=== PATIENT | female | born 2000 | race Two or more races ===

== ENCOUNTER 2020-08-06 19:43 | Emergency (ER) | payer BC ==
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
[2020-08-06] MEDS ORDERED: Lidocaine 1% 10 ML MDV INJECT ONE (20:20)
[2020-08-06 21:03] VITALS: BP 112/78; PULSE 89
== END 2020-08-06 21:10 | disposition home or self-care (01) ==
LOC: JD.ED 19:43
DX: S01.511A Laceration without foreign body of lip, initial encounter (principal); H61.20 Impacted cerumen, unspecified ear; Y04.0XXA Assault by unarmed brawl or fight, initial encounter; Z91.040 Latex allergy status
CPT/HCPCS: 12011; 99283; J2001; 12001

== ENCOUNTER 2021-08-27 13:48 | Inpatient (IN) | payer BC ==
[2021-08-27] MEDS ORDERED: Ondansetron 4 MG/2 ML SDV IVPUSH PRN (14:41)
[2021-08-27] MEDS ORDERED: Sodium Chloride 0.9% 10 ML Syringe FLUSH PRN (14:41)
[2021-08-27] MEDS ORDERED: Nalbuphine 10 MG/1 ML Vial IVPUSH PRN (14:41)
[2021-08-27] MEDS ORDERED: Oxytocin/Lactated Ringers 10 UNIT/1,000 ML BAG IV SCH ×2 (14:45)
[2021-08-27] MEDS: Lactated Ringers 1,000 ML IV SCH ×4 (15:22→23:17)
--- NOTE | 2021-08-27 15:57 | PCM.LDHP ---
L&D History of Present Illness - General Date of Service: 08/27/21 Admit Problem/Dx: Patient Status Order with Admit Dx/Problem 08/27/21 13:57 Patient Status [ADT] Routine 08/27/21 15:00 Patient Status [ADT] Routine Admission Diagnosis/Problem Admission Diagnosis/Problem Source of Information: Patient History Limitations: Reports: No Limitations - History of Present Illness Introduction:: Delicia Yo is a 20-year-old -0-1-0 female at 40 weeks 0 days (ANA M 08/27/2021) by LMP of 11/20/2020 consistent with an 11-week ultrasound who presents with spontaneous rupture membranes. She reports that around noon today she had a large gush of fluid that was clear to slightly green-tinged per her report. She states there there was some pink-tinged coloring to it initially but this is not continued. She denies any odor to the fluid. She has had continuous leaking of fluid since initial gush. While she has been on the labor and delivery unit she is soaked through several chucks pads. She denies any significant vaginal bleeding. She reports that she was having irregular contractions prior to her water breaking and started to have more frequent contractions after her water had broken. She states that the contractions were anywhere from about 5 to 10 minutes apart after her water broke. She reports good movement Timing/Duration: Reports: sudden onset (With large gush of fluid at around noon), intermittent (Contractions every 5 to 10-minute) Location, : Reports: Pelvic Quality: Reports: Pressure Severity: Moderate Associated Symptoms: Reports: vaginal fluid, large amount. Denies: vaginal bleeding, vaginal discharge Present Illness Comments:: Delicia Yo is a 20-year-old -0-1-0 female at 40 weeks 0 days (ANA M 08/27/2021) by LMP consistent with 11-week ultrasound who presents with spontaneous rupture membranes. She has had routine care with Dr. Avila starting at 10 weeks gestational age. Her has been overall uncomplicated but she has had increasing amounts of need for use of her albuterol inhaler due to asthma. She states that at this time she is using it intermittently about 1-2 times per week. Some weeks are worse than others. She received Tdap vaccine on 06/14/2021. 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 G1: TAB in 2017 with D&C G2: Current labs Blood type: A+ Antibody screen: Negative First trimester hematocrit/hemoglobin: 38.0%/13.1 on 02/03/2021 Platelets: 216 on 02/03/2021 Urine culture: Negative Rubella status: Immune Hepatitis B surface antigen: Negative RPR: Negative Hepatitis C: Negative HIV: Negative Gonorrhea: Negative Chlamydia: Negative One hour glucose tolerance test: 102 Second trimester hematocrit/hemoglobin: 34.6%/11.7 on 06/14/2021 Platelets: 178 on 06/14/2021 GBS status: Negative - Related Data Allergies/Adverse Reactions: Allergies Allergy/AdvReac Type Severity Reaction Status Date / Time adhesive Allergy Rash Verified 08/27/21 15:50 latex Allergy Rash Verified 08/06/20 20:05 Home Medications: Home Meds Vits #93/Iron Fum/FA [ Formula Tablet] 1 tab PO DAILY 08/27/21 [History] Past Medical History - Past Health History Medical/Surgical History: Denies Medical/Surgical History Respiratory History: Reports: Asthma FUND DEVELOPMENT MANAGER History: Reports: : 2 Para: 0 Psychiatric History: Reports: Addiction, Anxiety - Past Surgical History Musculoskeletal Surgical History: Reports: Arthroscopic Knee, Other (See Below) Other Musculoskeletal Surgeries/Procedures:: rt knee surgery Social & Family History - Family History Family Medical History: No Pertinent Family History - Tobacco Use Tobacco Use Status *Q: Former Tobacco User Used Tobacco, but Quit: Yes Month/Year Tobacco Last Used: 01/2021 Second Hand Smoke Exposure: No - Tobacco Core Measures Tobacco Use/Smoking Within Last 30 Days: No Smokeless Tobacco Use in Last 30 Days: No - Caffeine Use Caffeine Use: Reports: None - Recreational Drug Use Recreational Drug Use: No - Sexual History Sexual History: Reports: Multiple Partners - Living Situation & Occupation Living situation: Reports: H&P Review of Systems - Review of Systems: Review Of Systems: See Below General: Denies: Fever, Chills, Malaise, Fatigue HEENT: Denies: Headaches, Rhinitis, Post Nasal Drip, Sinus Congestion, Sore Throat, Visual Changes Pulmonary: Denies: Shortness of Breath, Wheezing, Pleuritic Chest Pain, Cough Cardiovascular: Denies: Chest Pain, Palpitations, Dyspnea on Exertion, Orthopnea Gastrointestinal: Reports: Diarrhea (For the last several days). Denies: Abdominal Pain, Constipation, Nausea, Vomiting Genitourinary: Denies: Dysuria, Frequency, Burning, Pain, Urgency Musculoskeletal: Reports: Back Pain (And hip pain ) Skin: Denies: Rash, Lesions Psychiatric: Denies: Depression, Anxiety L&D Exam - Exam Exam: See Below - Vital Signs Vital Signs: Last Vital Signs Temp 36.7 C 08/27/21 13:57 Pulse 90 08/27/21 13:57 Resp 16 08/27/21 13:57 BP 112/71 08/27/21 13:57 Pulse Ox 99 08/27/21 13:57 Weight: 76.204 kg - OB Specific Contraction Duration (sec): 45-60 Contraction Frequency (min): 3-5 Contraction Intensity: Moderate to Strong Movement: Active Heart Tones: Present Heart Tones per Min: 155 (+15 x 15 accelerations, intermittent early decelerations) Heart Rate (FHR) Variability: Moderate (6-25 bpm) Presentation: Vertex (By ultrasound) Estimated Weight: 7-7.5 lbs by Eduardo - Conn Score Conn Score Cervix Position: Anterior Conn Score Consistency: Soft Conn Score Effacement: >80% (80) Conn Score Dilation: 3-4 cm (4 cm) Conn Score 's Station: -2 Conn Score Total: 10 - Exam General: Alert, Oriented HEENT: Conjunctiva Clear, EOMI Neck: Supple, Trachea Midline Lungs: Clear to Auscultation, Normal Respiratory Effort Cardiovascular: Regular Rate, Regular Rhythm GI/Abdominal Exam: Soft, Non-Tender, No Distention, Other (Gravid). No: Guarding, Rigid, Rebound Genitourinary: Normal external exam Extremities: Normal Inspection, Non-Tender, Pedal Edema (1+) Skin: Warm, Dry, Intact Psychiatric: Alert, Normal Affect, Normal Mood - Patient Data Result Diagrams: 08/27/21 15:10 - Problem List (1) 40 weeks gestation of SNOMED Code(s): 15218689 ICD Code: Z3A.40 - 40 WEEKS GESTATION OF Status: Acute Current Visit: Yes (2) Asthma affecting , antepartum SNOMED Code(s): 76000561992697, 86610838282461 ICD Code: O99.519 - DISEASES OF THE RESP SYS COMP , UNSP TRIMESTER; J45.909 - UNSPECIFIED ASTHMA, UNCOMPLICATED Status: Acute Current Visit: Yes Problem List Initiated/Reviewed/Updated: Yes Orders Last 24hrs: Active Orders 24 hr Category Date Time Status Patient Status [ADT] Routine ADT 08/27/21 15:00 Active Activity as Tolerated [RC] PFP Care 08/27/21 14:41 Active Communication Order [RC] ASDIRECTED Care 08/27/21 14:41 Active Heart Tones [RC] ASDIRECTED Care 08/27/21 14:43 Active Non Stress Test [RC] PER UNIT ROUTINE Care 08/27/21 13:57 Active Notify Provider [RC] PFP Care 08/27/21 14:41 Active Notify Provider [RC] PRN Care 08/27/21 14:41 Active Peripheral IV Care [RC] . DIRECTED Care 08/27/21 14:43 Active Pump Management, Intrathecal [RC] ASDIRECTED Care 08/27/21 14:43 Active Urinary Catheter Assessment [RC] ASDIRECTED Care 08/27/21 14:41 Active Vital Signs [RC] PER UNIT ROUTINE Care 08/27/21 13:57 Active CBC WITH AUTO DIFF [HEME] Stat Lab 08/27/21 15:10 Received CORONAVIRUS COVID-19 LORETA [MOLEC] Stat Lab 08/27/21 14:10 Received RAPID PLASMA REAGIN,RPR [CHEM] Routine Lab 08/27/21 15:10 Received Lactated Ringers [Ringers, Lactated] 1,000 ml Med 08/27/21 14:45 Active IV ASDIRECTED Nalbuphine [Nubain] Med 08/27/21 14:41 Active 10 mg IVPUSH Q2H PRN Ondansetron [Zofran] Med 08/27/21 14:41 Active 4 mg IVPUSH Q4H PRN Oxytocin/Lactated Ringers [Pitocin in LR 10 Units/1,000 Med 08/27/21 14:45 Active ML] 10 unit in 1,000 ml IV .CONTINUOUS Oxytocin/Lactated Ringers [Pitocin in LR 10 Units/1,000 Med 08/27/21 14:45 Active ML] 10 unit in 1,000 ml IV TITRATE Sodium Chloride 0.9% [Saline Flush] Med 08/27/21 14:41 Active 10 ml FLUSH ASDIRECTED PRN Electronic Heart Tones Ext w TOCO [WOMSER] Oth 08/27/21 14:41 Ordered Routine Electronic Heart Tones Internal [WOMSER] Per Unit Oth 08/27/21 14:41 Ordered Routine Peripheral IV Insertion Adult [OM.PC] Routine Oth 08/27/21 14:41 Ordered Resuscitation Status Routine Resus Stat 08/27/21 13:56 Ordered Medication Orders Lactated Ringer's (Ringers, Lactated) 1,000 mls @ 100 mls/hr IV ASDIRECTED KISHAN Last Admin: 08/27/21 15:22 Dose: 100 mls/hr Documented by: RODDY Oxytocin/Lactated Ringer's (Pitocin In Lr 10 Units/1,000 Ml) 10 unit in 1,000 mls @ 12 mls/hr IV TITRATE KISHAN; Protocol Last Admin: 08/27/21 15:23 Dose: 2 munits/min, 12 mls/hr Documented by: RODDY Oxytocin/Lactated Ringer's (Pitocin In Lr 10 Units/1,000 Ml) 10 unit in 1,000 mls @ 500 mls/hr IV .CONTINUOUS KISHAN Nalbuphine HCl (Nalbuphine 10 Mg/1 Ml Vial) 10 mg IVPUSH Q2H PRN PRN Reason: Pain Ondansetron HCl (Ondansetron 4 Mg/2 Ml Sdv) 4 mg IVPUSH Q4H PRN PRN Reason: Nausea/Vomiting Sodium Chloride (Sodium Chloride 0.9% 10 Ml Syringe) 10 ml FLUSH ASDIRECTED PRN PRN Reason: Keep Vein Open Assessment/Plan Comment:: Delicia Yo is a 20-year-old -0-1-0 female at 40 weeks 0 days (ANA M 08/27/2021) with spontaneous rupture membranes in complicated by asthma Refer to observation for spontaneous rupture of membranes Continue Pitocin for augmentation of labor with contractions that were irregular on initial arrival Continuous monitoring Place IV and have Lactated Ringer's at 125 ml/hr May have small amounts of regular diet Activity as tolerated May have epidural as desired Plans to breast-feed after delivery Albuterol inhaler or nebulizer treatments as needed for asthma Anticipate vaginal delivery unless otherwise indicated Albino Stahl MD 4:07 PM 08/27/2021
[2021-08-27] MEDS ORDERED: fentaNYL 100 MCG/2 ML SDV ONE (16:53)
[2021-08-27] MEDS ORDERED: fentaNYL 100 MCG/2 ML SDV EPIDUR PRN (17:06)
[2021-08-27] MEDS ORDERED: diphenhydrAMINE 50 MG/ML SDV IVPUSH PRN (17:06)
[2021-08-27] MEDS ORDERED: ePHEDrine 50 MG/ML SDV IVPUSH PRN (17:06)
[2021-08-27] MEDS: Bupivacaine/fentaNYL/NS 100 ML Bag EPIDUR PRN (17:13)
--- NOTE | 2021-08-27 18:22 | PCM.PREANE ---
Preanesthetic Assessment - Procedure Proposed Procedure: marcio - Anesthesia/Transfusion/Family Hx Anesthesia History: Prior Anesthesia Without Reaction Family History of Anesthesia Reaction: No Transfusion History: No Prior Transfusion(s) - Review of Systems General: No Symptoms Pulmonary: No Symptoms Cardiovascular: No Symptoms Gastrointestinal: Other (gerd) Neurological: No Symptoms Other: Reports: None - Physical Assessment Vital Signs: Last Vital Signs Temp 98.1 F 08/27/21 13:57 Pulse 90 08/27/21 13:57 Resp 16 08/27/21 13:57 BP 112/71 08/27/21 13:57 Pulse Ox 99 08/27/21 13:57 Height: 5 ft 3 in Weight: 76.204 kg ASA Class: 2 Mental Status: Alert & Oriented x3 Airway Class: Mallampati = 1 Dentition: Reports: Normal Dentition Thyro-Mental Finger Breadths: 3 Mouth Opening Finger Breadths: 3 ROM/Head Extension: Full Lungs: Clear to Auscultation, Normal Respiratory Effort Cardiovascular: Regular Rate, Regular Rhythm - Lab Values: Laboratory Last Values WBC 10.94 K/mm3 (3.98-10.04) H 08/27/21 15:10 RBC 3.97 M/mm3 (3.98-5.22) L 08/27/21 15:10 Hgb 11.4 gm/dl (11.2-15.7) D 08/27/21 15:10 Hct 35.5 % (34.1-44.9) 08/27/21 15:10 MCV 89.4 fl (79.4-94.8) D 08/27/21 15:10 MCH 28.7 pg (25.6-32.2) 08/27/21 15:10 MCHC 32.1 g/dl (32.2-35.5) L 08/27/21 15:10 RDW Std Deviation 43.0 fL (36.4-46.3) 08/27/21 15:10 Plt Count 197 K/mm3 (182-369) D 08/27/21 15:10 MPV 9.4 fl (9.4-12.3) 08/27/21 15:10 Neut % (Auto) 74.7 % (34.0-71.1) H 08/27/21 15:10 Lymph % (Auto) 16.2 % (19.3-51.7) L 08/27/21 15:10 [place] % (Auto) 6.8 % (4.7-12.5) 08/27/21 15:10 Eos % (Auto) 1.7 (0.7-5.8) 08/27/21 15:10 Baso % (Auto) 0.2 % (0.1-1.2) 08/27/21 15:10 Neut # (Auto) 8.18 K/mm3 (1.56-6.13) H 08/27/21 15:10 Lymph # (Auto) 1.77 K/mm3 (1.18-3.74) 08/27/21 15:10 [place] # (Auto) 0.74 K/mm3 (0.24-0.36) H 08/27/21 15:10 Eos # (Auto) 0.19 K/mm3 (0.04-0.36) 08/27/21 15:10 Baso # (Auto) 0.02 K/mm3 (0.01-0.08) 08/27/21 15:10 SARS-CoV-2 RNA (LORETA) Negative (NEGATIVE) 08/27/21 14:10 - Allergies Allergies/Adverse Reactions: Allergies Allergy/AdvReac Type Severity Reaction Status Date / Time adhesive Allergy Rash Verified 08/27/21 15:50 latex Allergy Rash Verified 08/06/20 20:05 - Blood Blood Available: No - Acknowledgements Anesthesia Type Planned: Epidural Pt an Appropriate Candidate for the Planned Anesthesia: Yes Alternatives and Risks of Anesthesia Discussed w Pt/Guardian: Yes Pt/Guardian Understands and Agrees with Anesthesia Plan: Yes PreAnesthesia Questionnaire - Past Health History Medical/Surgical History: Denies Medical/Surgical History Cardiovascular History: Reports: None Respiratory History: Reports: Asthma Gastrointestinal History: Reports: GERD 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: Psychiatric History: Reports: Addiction, Anxiety Endocrine/Metabolic History: Reports: None Oncologic (Cancer) History: Reports: None - Past Surgical History Musculoskeletal Surgical History: Reports: Arthroscopic Knee, Other (See Below) Other Musculoskeletal Surgeries/Procedures:: rt knee surgery - SUBSTANCE USE Tobacco Use Status *Q: Former Tobacco User Tobacco Use Within Last Twelve Months: Cigarettes Second Hand Smoke Exposure: Yes Recreational Drug Use History: No - HOME MEDS Home Medications: Home Meds Albuterol Sulfate [Proair Digihaler] 108 mcg IH ASDIRECTED PRN 08/27/21 [History] Vits #93/Iron Fum/FA [ Formula Tablet] 1 tab PO DAILY 08/27/21 [History] - CURRENT (IN HOUSE) MEDS Current Meds: Current Medications Diphenhydramine HCl (Diphenhydramine 50 Mg/Ml Sdv) 25 mg IVPUSH Q6H PRN PRN Reason: pruritis Ephedrine Sulfate (Ephedrine 50 Mg/Ml Sdv) 5 mg IVPUSH ASDIRECTED PRN PRN Reason: Hypotension Fentanyl (Fentanyl 100 Mcg/2 Ml Sdv) 100 mcg EPIDUR Q3H PRN PRN Reason: Pain Fentanyl/Bupivacaine HCl (Bupivacaine/Fentanyl/Ns 100 Ml Bag) 100 ml EPIDUR ASDIRECTED PRN PRN Reason: Pain Last Admin: 08/27/21 17:13 Dose: 100 ml Documented by: Lactated Ringer's (Ringers, Lactated) 1,000 mls @ 100 mls/hr IV ASDIRECTED KISHAN Last Admin: 08/27/21 17:06 Dose: 999 mls/hr Documented by: Oxytocin/Lactated Ringer's (Pitocin In Lr 10 Units/1,000 Ml) 10 unit in 1,000 mls @ 12 mls/hr IV TITRATE KISHAN; Protocol Last Admin: 08/27/21 15:23 Dose: 2 munits/min, 12 mls/hr Documented by: Oxytocin/Lactated Ringer's (Pitocin In Lr 10 Units/1,000 Ml) 10 unit in 1,000 m ls @ 500 mls/hr IV .CONTINUOUS KISHAN Nalbuphine HCl (Nalbuphine 10 Mg/1 Ml Vial) 10 mg IVPUSH Q2H PRN PRN Reason: Pain Ondansetron HCl (Ondansetron 4 Mg/2 Ml Sdv) 4 mg IVPUSH Q4H PRN PRN Reason: Nausea/Vomiting Sodium Chloride (Sodium Chloride 0.9% 10 Ml Syringe) 10 ml FLUSH ASDIRECTED PRN PRN Reason: Keep Vein Open Discontinued Medications Fentanyl (Fentanyl 100 Mcg/2 Ml Sdv) Confirm Administered Dose 100 mcg .ROUTE .STK-MED ONE Stop: 08/27/21 16:54 Last Admin: 08/27/21 17:07 Dose: 100 mcg Documented by:
[2021-08-28] MEDS: Bupivacaine/fentaNYL/NS 100 ML Bag EPIDUR PRN (00:44)
[2021-08-28] MEDS: Lactated Ringers 1,000 ML IV SCH (04:19)
[2021-08-28] MEDS ORDERED: Calcium Carbonate 500 MG Tab.Chew PO PRN (04:54)
[2021-08-28] MEDS ORDERED: Bupivacaine 0.25% 10 ML SDV ONE (06:00)
--- NOTE | 2021-08-28 07:36 | PCM.DEL ---
L & D Note - General Info Date of Service: 08/28/21 Mother's Due Date: 08/27/21 - Delivery Note Labor: Augmented by Oxytocin Delivery Outcome: Livebirth Infant Delivery Method: Spontaneous Vaginal Delivery-Single Presentation: Right Occiput Transverse (ROT) Nuchal Cord: None Prep: Povidone-Iodine (Betadine Anesthesia Type: Epidural Amniotic Fluid Description: Meconium Stained Episiotomy Type: None Laceration: 1st Degree (bilateral perineal lacerations repaired with 3-0 Vicryl) Suture type: Chromic Suture size: 3-0 Placenta: Spontaneous Cord: 3 Vessels Estimated Blood Loss: 600 Resuscitation Needed: Yes [place]: Suctioned, Bulb Syringe, Stimulated, Warmed, [place] Used, Warmer Used Provider: Wendie Avila Score 1 min: 2 Score 5 min: 5 Score 10 min: 7 Second Stage Interventions: Reports: Pushing Effectively, Pushing, Stirrups/Leg Supports Delivery Comments (Free Text/Narrative):: Stage I: Delicia Yo was admitted for spontaneous rupture membranes with clear fluid. On admission her cervix was dilated to 2 cm. She was GBS negative. She was started on Pitocin for augmentation of labor due to irregular contractions that were mild. She was given an epidural for anesthesia. She was noted to have possible meconium staining of fluid towards the end of the labor. She progressed to complete and pushing Stage II: On 08/28/2021 she had a normal vaginal delivery of a live male at 06:40. Apgars of 2, 5 & 7. Weight of 3470 g (7 lbs 10.4 oz). Length of 21.0 inches. There was no nuchal cord. was delivered in MILAN position. The cord was doubly clamped and cut by father the infant. Infant was placed on mother's abdomen and taken to the warmer shortly after delivery at approximately 30 seconds of life. cord blood gases were obtained and venous values were pH 7.26, PO2 25 mmHg and PCO2 42.7 mmHg. Arterial values were pH 7.23, PO2 22 mmHg and PCO2 48.4 mmHg. Stage III: She had a spontaneous delivery of an intact placenta in Gunner presentation. Three vessel cord. She was given pitocin and fundal massage. She had bilateral first-degree perineal lacerations that were repaired with 3-0 Vicryl. Mom and baby were stable to recovery. EBL of 600 mL. Albino Stahl MD 7:43 AM 08/28/2021 - General Info Date of Service: 08/28/21 - Patient Data Vitals - Most Recent: Last Vital Signs Temp 36.7 C 08/27/21 13:57 Pulse 90 08/27/21 13:57 Resp 16 08/27/21 13:57 BP 112/71 08/27/21 13:57 Pulse Ox 99 08/27/21 13:57 Weight - Most Recent: 76.204 kg I&O - Last 24 Hours: Intake & Output 08/27/21 08/28/21 08/28/21 22:59 06:59 14:59 Intake Total 1500 Output Total 400 Balance 1100 Lab Results Last 24 Hours: Laboratory Results - last 24 hr 08/27/21 08/27/21 08/27/21 Range/Units 14:10 15:10 15:10 WBC 10.94 H (3.98-10.04) K/mm3 RBC 3.97 L (3.98-5.22) M/mm3 Hgb 11.4 D (11.2-15.7) gm/dl Hct 35.5 (34.1-44.9) % MCV 89.4 D (79.4-94.8) fl MCH 28.7 (25.6-32.2) pg MCHC 32.1 L (32.2-35.5) g/dl RDW Std Deviation 43.0 (36.4-46.3) fL Plt Count 197 D (182-369) K/mm3 MPV 9.4 (9.4-12.3) fl Neut % (Auto) 74.7 H (34.0-71.1) % Lymph % (Auto) 16.2 L (19.3-51.7) % [place] % (Auto) 6.8 (4.7-12.5) % Eos % (Auto) 1.7 (0.7-5.8) Baso % (Auto) 0.2 (0.1-1.2) % Neut # (Auto) 8.18 H (1.56-6.13) K/mm3 Lymph # (Auto) 1.77 (1.18-3.74) K/mm3 [place] # (Auto) 0.74 H (0.24-0.36) K/mm3 Eos # (Auto) 0.19 (0.04-0.36) K/mm3 Baso # (Auto) 0.02 (0.01-0.08) K/mm3 RPR Non-reactive (NONREACTIVE) SARS-CoV-2 RNA ([place]) Negative (NEGATIVE) Med Orders - Current: Current Medications Calcium Carbonate/Glycine (Calcium Carbonate 500 Mg Tab.Chew) 500 mg PO Q2HR PRN PRN Reason: Indigestion Diphenhydramine HCl (Diphenhydramine 50 Mg/Ml Sdv) 25 mg IVPUSH Q6H PRN PRN Reason: pruritis Ephedrine Sulfate (Ephedrine 50 Mg/Ml Sdv) 5 mg IVPUSH ASDIRECTED PRN PRN Reason: Hypotension Fentanyl (Fentanyl 100 Mcg/2 Ml Sdv) 100 mcg EPIDUR Q3H PRN PRN Reason: Pain Fentanyl/Bupivacaine HCl (Bupivacaine/Fentanyl/Ns 100 Ml Bag) 100 ml EPIDUR ASDIRECTED PRN PRN Reason: Pain Last Admin: 08/28/21 00:44 Dose: 100 ml Documented by: Lactated Ringer's (Ringers, Lactated) 1,000 mls @ 100 mls/hr IV ASDIRECTED KISHAN Last Admin: 08/28/21 04:19 Dose: 100 mls/hr Documented by: Oxytocin/Lactated Ringer's (Pitocin In Lr 10 Units/1,000 Ml) 10 unit in 1,000 mls @ 12 mls/hr IV TITRATE KISHAN; Protocol Last Titration: 08/28/21 02:02 Dose: 1 munits/min, 6 mls/hr Documented by: Oxytocin/Lactated Ringer's (Pitocin In Lr 10 Units/1,000 Ml) 10 unit in 1,000 mls @ 500 mls/hr IV .CONTINUOUS KISHAN Nalbuphine HCl (Nalbuphine 10 Mg/1 Ml Vial) 10 mg IVPUSH Q2H PRN PRN Reason: Pain Ondansetron HCl (Ondansetron 4 Mg/2 Ml Sdv) 4 mg IVPUSH Q4H PRN PRN Reason: Nausea/Vomiting Last Admin: 08/27/21 23:30 Dose: 4 mg Documented by: Sodium Chloride (Sodium Chloride 0.9% 10 Ml Syringe) 10 ml FLUSH ASDIRECTED PRN PRN Reason: Keep Vein Open Discontinued Medications Fentanyl (Fentanyl 100 Mcg/2 Ml Sdv) Confirm Administered Dose 100 mcg .ROUTE .STK-MED ONE Stop: 08/27/21 16:54 Last Admin: 08/27/21 17:07 Dose: 100 mcg Documented by: - Exam Urinary Catheter Total Time: 0Days 0Hours - Problem List & Annotations (1) 40 weeks gestation of SNOMED Code(s): 93489056 Code(s): Z3A.40 - 40 WEEKS GESTATION OF Status: Acute Current Visit: Yes (2) Asthma affecting , antepartum SNOMED Code(s): 65502647780794, 73823912757182 Code(s): O99.519 - DISEASES OF THE RESP SYS COMP , UNSP TRIMESTER; J45.909 - UNSPECIFIED ASTHMA, UNCOMPLICATED Status: Acute Current Visit: Yes (3) Vaginal delivery SNOMED Code(s): 080317766 Code(s): O80 - ENCOUNTER FOR FULL-TERM UNCOMPLICATED DELIVERY Status: Acute Current Visit: Yes (4) First degree perineal laceration during delivery SNOMED Code(s): 808300650 Code(s): O70.0 - FIRST DEGREE PERINEAL LACERATION DURING DELIVERY Status: Acute Current Visit: Yes (5) Meconium in amniotic fluid affecting management of mother in third trimester SNOMED Code(s): 77384567, 42897941, 86245322 Code(s): O36.8930 - MATERNAL CARE FOR OTH PROBLEMS, THIRD TRIMESTER, UNSP Status: Acute Current Visit: Yes - Problem List Review Problem List Initiated/Reviewed/Updated: Yes - My Orders Last 24 Hours: My Active Orders 08/27/21 13:56 Resuscitation Status Routine 08/27/21 13:57 Vital Signs [RC] PER UNIT ROUTINE 08/27/21 14:41 Activity as Tolerated [RC] PFP Communication Order [RC] ASDIRECTED Notify Provider [RC] PFP Notify Provider [RC] PRN Urinary Catheter Assessment [RC] ASDIRECTED Nalbuphine [Nubain] 10 mg IVPUSH Q2H PRN Ondansetron [Zofran] 4 mg IVPUSH Q4H PRN Sodium Chloride 0.9% [Saline Flush] 10 ml FLUSH ASDIRECTED PRN Electronic Heart Tones Ext w TOCO [WOMSER] Routine Electronic Heart Tones Internal [WOMSER] Per Unit Routine Peripheral IV Insertion Adult [OM.PC] Routine 08/27/21 14:43 Heart Tones [RC] ASDIRECTED Peripheral IV Care [RC] Q4HR Pump Management, Intrathecal [RC] ASDIRECTED 08/27/21 14:45 Lactated Ringers [Ringers, Lactated] 1,000 ml IV ASDIRECTED Oxytocin/Lactated Ringers [Pitocin in LR 10 Units/1,000 ML] 10 unit in 1,000 ml IV .CONTINUOUS Oxytocin/Lactated Ringers [Pitocin in LR 10 Units/1,000 ML] 10 unit in 1,000 ml IV TITRATE 08/27/21 15:00 Patient Status [ADT] Routine 08/28/21 04:54 Calcium Carbonate [Tums] 500 mg PO Q2HR PRN 08/28/21 07:27 Patient Status Manage Transfer [TRANSFER] Routine - Plan Plan:: Delicia Yo is a 20-year-old G2 now P1-0-1-1 female status post , PPD #0 with complicated by asthma Admit to inpatient following normal spontaneous vaginal delivery Continue Pitocin per unit protocol following delivery of placenta and lactated Ringer's until tolerating regular diet Regular diet Vitals per unit routine Ibuprofen and Tylenol for pain control Assist with breast-feeding as needed Continue to monitor lochia Albuterol inhaler as needed for asthma Anticipate discharge home on day #2 Albino Stahl MD 7:43 AM 08/28/2021
[2021-08-28] MEDS ORDERED: Acetaminophen 325 MG Tab PO PRN (07:56)
[2021-08-28] MEDS ORDERED: Benzocaine/Menthol 20%-0.5% Spray 78 GM Cannister TOP PRN (07:56)
[2021-08-28] MEDS ORDERED: Magnesium Hydroxide 400 MG/5 ML Susp 30 ML Cup PO PRN (07:56)
[2021-08-28] MEDS ORDERED: Hydrocortisone Acetate 25 MG Supp RECTAL PRN (07:56)
[2021-08-28] MEDS ORDERED: Witch Hazel Medicated Pads 40/Jar TOP PRN (07:56)
[2021-08-28] MEDS ORDERED: Oxytocin/Lactated Ringers 10 UNIT/1,000 ML BAG IV SCH (07:56)
[2021-08-28] MEDS: Ibuprofen 600 MG Tab PO PRN ×2 (09:06→16:51)
--- NOTE | 2021-08-28 18:23 | PCM48HPAN ---
Post Anesthesia Note - EVALUATION WITHIN 48HRS OF ANESTHETIC Vital Signs in Normal Range: Yes Patient Participated in Evaluation: Yes Respiratory Function Stable: Yes Airway Patent: Yes Cardiovascular Function Stable: Yes Hydration Status Stable: Yes Pain Control Satisfactory: Yes Nausea and Vomiting Control Satisfactory: Yes Mental Status Recovered: Yes Vital Signs: Last Vital Signs Temp 98.2 F 08/28/21 16:48 Pulse 79 08/28/21 16:48 Resp 14 08/28/21 16:48 BP 88/57 L 08/28/21 16:48 Pulse Ox 99 08/28/21 16:48
[2021-08-29] MEDS: Ibuprofen 600 MG Tab PO PRN ×2 (05:57→15:34)
--- NOTE | 2021-08-29 07:41 | PCM.SN.2 ---
- Free Text/Narrative Note: Post Progress Note PPD #1 Subjective: Doing well overall. Ambulating without difficulty. Lochia minimal. Voiding without difficulty. Tolerating regular diet without nausea or vomiting. Pain controlled with oral medications. Reports that she does have some cramping after breast-feeding . Breast-feeding with minimal difficulty. Reports that she has been feeling warm and cold throughout the evening. Objective: Vitals: Vital Signs - 24 hr 08/28/21 08/28/21 08/29/21 16:48 21:01 05:53 Temperature 36.8 C 36.4 C 37.1 C Pulse, 79 82 96 Peripheral Respiratory 14 14 14 Rate Blood Pressure 88/57 L 114/75 104/63 O2 Sat by Pulse 99 99 98 Oximetry Physical Exam General: Alert and oriented, no acute distress Lungs: Clear to auscultation bilaterally Heart: Regular rate and rhythm Abdomen: Soft, minimal appropriate tenderness, non-distended, fundus midline, nontender, and at the umbilicus Extremities: No edema in bilateral lower extremities, no calf tenderness bilaterally ASSESSMENT: 20-year-old female -0-1-1 s/p normal vaginal delivery PPD #1, complicated by mild asthma PLAN: Doing well Breast-feeding with minimal difficulty. Assist as needed Lochia minimal. Continue to monitor for appropriate lochia. Continue routine care No significant evidence of infection despite patient's complaints of feeling warm and chilled overnight. Temperature when measured was normal. Follow-up on results of CBC after EBL of 600 mL during delivery Anticipate discharge home tomorrow Albino Stahl MD 7:40 AM 08/29/2021
[2021-08-29] MEDS: Docusate Sodium 100 MG Cap PO PRN (21:39)
[2021-08-30] MEDS: Ibuprofen 600 MG Tab PO PRN (06:32)
--- NOTE | 2021-08-30 09:00 | PCM.SN.2 ---
- Free Text/Narrative Note: Post Progress Note PPD #2 Subjective: Doing well overall. Ambulating without difficulty. Lochia minimal. Voiding without difficulty. Tolerating regular diet without nausea or vomiting. Pain controlled with oral medications. Breast-feeding with minimal difficulty. Continues to be feeling warm and cold throughout the evening but diminished from previously. Objective: Vitals: Vital Signs - 24 hr 08/29/21 08/29/21 08/30/21 15:05 20:32 03:51 Temperature 36.2 C 36.5 C 36.3 C Pulse, 94 82 92 Peripheral Respiratory 12 14 15 Rate Blood Pressure 110/81 106/67 114/70 O2 Sat by Pulse 99 100 98 Oximetry Physical Exam General: Alert and oriented, no acute distress Lungs: Clear to auscultation bilaterally Heart: Regular rate and rhythm Abdomen: Soft, minimal appropriate tenderness, non-distended, fundus midline, nontender, and at the umbilicus Extremities: No edema in bilateral lower extremities, no calf tenderness bilaterally ASSESSMENT: 20-year-old female -0-1-1 s/p normal vaginal delivery PPD #2, complicated by mild asthma PLAN: Doing well Breast-feeding with minimal difficulty. Assist as needed Lochia minimal. Continue to monitor for appropriate lochia. Continue routine care No significant evidence of infection despite patient's complaints of feeling warm and chilled overnight. Temperature when measured was normal. CBC on PPD #1 showed appropriate drop in hemoglobin Discharge home today Albino Stahl MD 8:58 AM 08/30/2021
--- NOTE | 2021-08-30 09:05 | PCM.DCSUM1 ---
Discharge Summary - Hospital Course Free Text/Narrative:: - General Info Date of Service: 08/28/21 Mother's Due Date: 08/27/21 - Delivery Note Labor: Augmented by Oxytocin Delivery Outcome: Livebirth Delivery Method: Spontaneous Vaginal Delivery-Single Presentation: Right Occiput Transverse (ROT) Nuchal Cord: None Prep: Povidone-Iodine (Betadine Anesthesia Type: Epidural Amniotic Fluid Description: Meconium Stained Episiotomy Type: None Laceration: 1st Degree (bilateral perineal lacerations repaired with 3-0 Vicryl) Suture type: Chromic Suture size: 3-0 Placenta: Spontaneous Cord: 3 Vessels Estimated Blood Loss: 600 Resuscitation Needed: Yes [place]: Suctioned, Bulb Syringe, Stimulated, Warmed, [place] Used, Warmer Used Provider: Wendie Avila Score 1 min: 2 Score 5 min: 5 Score 10 min: 7 Second Stage Interventions: Reports: Pushing Effectively, Pushing, Stirrups/Leg Supports Delivery Comments (Free Text/Narrative):: Stage I: Delicia Yo was admitted for spontaneous rupture membranes with clear fluid. On admission her cervix was dilated to 2 cm. She was GBS negative. She was started on Pitocin for augmentation of labor due to irregular contractions that were mild. She was given an epidural for anesthesia. She was noted to have possible meconium staining of fluid towards the end of the labor. She progressed to complete and pushing Stage II: On 08/28/2021 she had a normal vaginal delivery of a live male infant at 06:40. Apgars of 2, 5 & 7. Weight of 3470 g (7 lbs 10.4 oz). Length of 21.0 inches. There was no nuchal cord. Infant was delivered in MILAN position. The cord was doubly clamped and cut by father the . Infant was placed on mother's abdomen and taken to the warmer shortly after delivery at approximately 30 seconds of life. cord blood gases were obtained and venous values were pH 7.26, PO2 25 mmHg and PCO2 42.7 mmHg. Arterial values were pH 7.23, PO2 22 mmHg and PCO2 48.4 mmHg. Stage III: She had a spontaneous delivery of an intact placenta in Gunner presentation. Three vessel cord. She was given pitocin and fundal massage. She had bilateral first-degree perineal lacerations that were repaired with 3-0 Vicryl. Mom and baby were stable to recovery. EBL of 600 mL. Diagnosis: Stroke: No - Discharge Data Discharge Date: 08/30/21 Discharge Disposition: Home, Self-Care 01 Condition: Good - Referral to Home Health Primary Care Physician: Albino Stahl MD - Discharge Diagnosis/Problem(s) (1) 40 weeks gestation of SNOMED Code(s): 85290422 ICD Code: Z3A.40 - 40 WEEKS GESTATION OF Status: Acute Current Visit: Yes (2) Asthma affecting , antepartum SNOMED Code(s): 46898976603621, 93174686109611 ICD Code: O99.519 - DISEASES OF THE RESP SYS COMP , UNSP TRIMESTER; J45.909 - UNSPECIFIED ASTHMA, UNCOMPLICATED Status: Acute Current Visit: Yes (3) Vaginal delivery SNOMED Code(s): 075647987 ICD Code: O80 - ENCOUNTER FOR FULL-TERM UNCOMPLICATED DELIVERY Status: Acute Current Visit: Yes (4) First degree perineal laceration during delivery SNOMED Code(s): 618743285 ICD Code: O70.0 - FIRST DEGREE PERINEAL LACERATION DURING DELIVERY Status: Acute Current Visit: Yes (5) Meconium in amniotic fluid affecting management of mother in third trimester SNOMED Code(s): 58526110, 31434986, 98701542 ICD Code: O36.8930 - MATERNAL CARE FOR OTH PROBLEMS, THIRD TRIMESTER, UNSP Status: Acute Current Visit: Yes - Patient Summary/Data Complications: None Consults: None Hospital Course: Delicia Yo was admitted for spontaneous rupture membranes with clear fluid. On admission her cervix was dilated to 2 cm. She was GBS negative. She was given pitocin for augmentation of labor due to irregular contractions. She was given an epidural for anesthesia. She was noted to have possible meconium staining of fluid towards the end of labor. She progressed to complete and began pushing. On 08/28/2021 she had a normal vaginal delivery of a live male infant at 06:40. Apgars of 2, 5 and 7. Weight of 3470 g (7 pounds 10.4 ounces). cord blood gases were within normal limits. Her course was uneventful. Her pain was well controlled and she had minimal lochia. She was ambulating, tolerating a regular diet and voiding normally. She was breast-feeding with minimal difficulty. She was afebrile and her hematocrit was 29.0 on morning of PPD #1. She desired to be discharged home on the morning of PPD #2. Her blood type is A+. - Patient Instructions Diet: Regular Diet as Tolerated Activity: Apply Ice, As Tolerated Activity, Other: Nothing in vagina for 6 weeks Driving: May Drive Today Showering/Bathing: May Shower Notify Provider of: Fever, Increased Pain, Swelling and Redness, Drainage, Nausea and/or Vomiting Other/Special Instructions: Please contact your physician's office if you have heavy vaginal bleeding enough to soak a pad in less than an hour for several hours. Monitor for any signs of an infection in the breasts with severe pain or redness of the breast. - Discharge Plan *PRESCRIPTION DRUG MONITORING PROGRAM REVIEWED*: Not Applicable *COPY OF PRESCRIPTION DRUG MONITORING REPORT IN PATIENT ANGI: Not Applicable Home Medications: Home Meds Albuterol Sulfate [Proair Digihaler] 108 mcg IH ASDIRECTED PRN 08/27/21 [Histo ry] Vits #93/Iron Fum/FA [ Formula Tablet] 1 tab PO DAILY 08/27/21 [History] Acetaminophen [Tylenol] 650 mg PO Q6H PRN tablet 08/30/21 [Rx] Benzocaine/Menthol [Dermoplast Pain Relief 20%-0.5% [place]] 1 spray TOP ASDIRECTED PRN canister 08/30/21 [Rx] Docusate Sodium [Colace] 100 mg PO BID PRN cap 08/30/21 [Rx] Ibuprofen [Motrin] 600 mg PO Q6H PRN tablet 08/30/21 [Rx] witch Evita [Tucks] 1 pad TOP ASDIRECTED PRN pad 08/30/21 [Rx] Patient Handouts: Care of a Perineal Tear, Care After Vaginal Delivery Referrals: Wendie Avila MD [Physician] - (Follow-up in 3 to 6 weeks for routine visit or earlier as needed) - Discharge Summary/Plan Comment DC Time >30 min.: No Total # of Minutes for Discharge Time: 15 minutes - Patient Data Vitals - Most Recent: Last Vital Signs Temp 36.3 C 08/30/21 03:51 Pulse 92 08/30/21 03:51 Resp 15 08/30/21 03:51 BP 114/70 08/30/21 03:51 Pulse Ox 98 08/30/21 03:51 Weight - Most Recent: 76.204 kg Med Orders - Current: Current Medications Acetaminophen (Acetaminophen 325 Mg Tab) 650 mg PO Q6H PRN PRN Reason: mild pain or fever Last Admin: 08/29/21 20:45 Dose: 650 mg Documented by: Benzocaine/Menthol (Benzocaine/Menthol 20%-0.5% [place] 78 Gm Cannister) 0 gm TOP ASDIRECTED PRN PRN Reason: Perineal Comfort Measure Last Admin: 08/28/21 09:16 Dose: 1 can Documented by: Docusate Sodium (Docusate Sodium 100 Mg Cap) 100 mg PO BID PRN PRN Reason: Constipation Last Admin: 08/29/21 21:39 Dose: 100 mg Documented by: Hydrocortisone Acetate (Hydrocortisone Acetate 25 Mg Supp) 25 mg RECTAL BID PRN PRN Reason: Hemorrhoid pain Oxytocin/Lactated Ringer's (Pitocin In Lr 10 Units/1,000 Ml) 10 unit in 1,000 mls @ 100 mls/hr IV TITRATE KISHAN; Protocol Ibuprofen (Ibuprofen 600 Mg Tab) 600 mg PO Q6H PRN PRN Reason: Mild pain or fever Last Admin: 08/30/21 06:32 Dose: 600 mg Documented by: Magnesium Hydroxide (Magnesium Hydroxide 400 Mg/5 Ml Susp 30 Ml Cup) 30 ml PO BEDTIME PRN PRN Reason: Constipation Witch Evita (Witch Evita Medicated Pads 40/Jar) 1 pad TOP ASDIRECTED PRN PRN Reason: Perineal Comfort Measure Last Admin: 08/28/21 09:11 Dose: 1 jar Documented by: Discontinued Medications Bupivacaine HCl (Bupivacaine 0.25% 10 Ml Sdv) 10 ml .ROUTE .STK-MED ONE Stop: 08/28/21 06:01 Calcium Carbonate/Glycine (Calcium Carbonate 500 Mg Tab.Chew) 500 mg PO Q2HR PRN PRN Reason: Indigestion Diphenhydramine HCl (Diphenhydramine 50 Mg/Ml Sdv) 25 mg IVPUSH Q6H PRN PRN Reason: pruritis Ephedrine Sulfate (Ephedrine 50 Mg/Ml Sdv) 5 mg IVPUSH ASDIRECTED PRN PRN Reason: Hypotension Fentanyl (Fentanyl 100 Mcg/2 Ml Sdv) Confirm Administered Dose 100 mcg .ROUTE .K-MED ONE Stop: 08/27/21 16:54 Last Admin: 08/27/21 17:07 Dose: 100 mcg Documented by: Fentanyl (Fentanyl 100 Mcg/2 Ml Sdv) 100 mcg EPIDUR Q3H PRN PRN Reason: Pain Fentanyl/Bupivacaine HCl (Bupivacaine/Fentanyl/Ns 100 Ml Bag) 100 ml EPIDUR ASDIRECTED PRN PRN Reason: Pain Last Admin: 08/28/21 00:44 Dose: 100 ml Documented by: Lactated Ringer's (Ringers, Lactated) 1,000 mls @ 100 mls/hr IV ASDIRECTED KISHAN Last Admin: 08/28/21 04:19 Dose: 100 mls/hr Documented by: Oxytocin/Lactated Ringer's (Pitocin In Lr 10 Units/1,000 Ml) 10 unit in 1,000 mls @ 12 mls/hr IV TITRATE KISHAN; Protocol Last Titration: 08/28/21 06:40 Dose: 166.5 munits/min, 999 mls/hr Documented by: Oxytocin/Lactated Ringer's (Pitocin In Lr 10 Units/1,000 Ml) 10 unit in 1,000 mls @ 500 mls/hr IV .CONTINUOUS KISHAN Nalbuphine HCl (Nalbuphine 10 Mg/1 Ml Vial) 10 mg IVPUSH Q2H PRN PRN Reason: Pain Ondansetron HCl (Ondansetron 4 Mg/2 Ml Sdv) 4 mg IVPUSH Q4H PRN PRN Reason: Nausea/Vomiting Last Admin: 08/27/21 23:30 Dose: 4 mg Documented by: Sodium Chloride (Sodium Chloride 0.9% 10 Ml Syringe) 10 ml FLUSH ASDIRECTED PRN PRN Reason: Keep Vein Open
[2021-08-30] MEDS: Docusate Sodium 100 MG Cap PO PRN (09:47)
[2021-08-30 11:07] VITALS: BP 108/89; PULSE 79
== END 2021-08-30 13:00 | disposition home or self-care (01) | DRG 560 ==
LOC: JD.OBCHECK 13:48 → JD.OB 15:00 → OBSVTOIN 08-28 06:40 → JD.OB 08-28 06:41
PROVIDERS: ADMIT Obstetrics & Gynecology; ATTEND Obstetrics & Gynecology
PROC: 10E0XZZ Delivery of Products of Conception, External Approach (ICD-10-PCS; principal; 2021-08-28)
PROC: 0HQ9XZZ Repair Perineum Skin, External Approach (ICD-10-PCS; 2021-08-28)
PROC: 3E0R3BZ Introduction of Anesthetic Agent into Spinal Canal, Percutaneous Approach (ICD-10-PCS; 2021-08-28)
PROC: 00HU33Z Insertion of Infusion Device into Spinal Canal, Percutaneous Approach (ICD-10-PCS; 2021-08-28)
DX: O77.0 Labor and delivery complicated by meconium in amniotic fluid (principal); O48.0 Post-term pregnancy; O70.0 First degree perineal laceration during delivery; Z37.0 Single live birth; Z3A.40 40 weeks gestation of pregnancy; Z87.891 Personal history of nicotine dependence; Z91.09 Other allergy status, other than to drugs and biological substances; Z91.040 Latex allergy status; J45.909 Unspecified asthma, uncomplicated; O99.52 Diseases of the respiratory system complicating childbirth; Z20.822 Contact with and (suspected) exposure to COVID-19
CPT/HCPCS: 01967; 36415; 51702; 59025; 59409; 85025; 86592; A9270-GY; J2405; J2590; J3010; J3490; J7120; U0002